=== PATIENT | female | born 1980 | race Caucasian/White ===

== ENCOUNTER 2024-05-13 19:40 | Emergency (ER) | payer SELFPAY ==
[2024-05-13] MEDS ORDERED: Acetaminophen/HYDROcodone 325-5 MG Tab PO ONE (19:41)
[2024-05-13] MEDS ORDERED: Naloxone 0.4 MG/ML SDV IVPUSH PRN (20:07)
[2024-05-13] MEDS ORDERED: Sodium Chloride 0.9% 10 ML Syringe FLUSH PRN (20:07)
[2024-05-13] MEDS: Sodium Chloride 0.9% 1,000 ML IV ONE (20:15)
[2024-05-13] MEDS: Ondansetron 4 MG/2 ML SDV IVPUSH ONE (20:20)
[2024-05-13] MEDS: HYDROmorphone 2 MG/ML SDV IVPUSH ONE (20:29)
[2024-05-13 20:33] LABS: BASOPHILS ABSOLUTE AUTO 0.1 x10-3/uL (0.0-0.1); BASOPHILS PERCENT AUTO 1.2 % (0.2-1.5); EOSINOPHILS ABSOLUTE AUTO 0.2 x10-3/uL (0.0-0.8); EOSINOPHILS PERCENT AUTO 1.5 % (0.6-8.1); HEMATOCRIT 37.8 % (34.2-48.2); LYMPHOCYTES ABSOLUTE AUTO 1.8 x10-3/uL (1.0-4.4); MEAN CORPUSCULAR HEMOGLOBIN 31.3 pg (23.9-33.9); MEAN CORPUSCULAR HGB CONC 34.5 g/dL (31.9-34.8); MEAN CORPUSCULAR VOLUME 90.9 fL (76.7-100.5); MEAN PLATELET VOLUME 7.6 fL (7.1-12.4); MONOCYTES ABSOLUTE AUTO 0.6 x10-3/uL (0.3-1.0); MONOCYTES PERCENT AUTO 5.1 % (4.4-15.7); NEUTROPHILS ABSOLUTE AUTO 8.6 x10-3/uL (1.5-6.3); NEUTROPHILS PERCENT AUTO 76.2 % (30.8-76.2); PLATELET COUNT,PLT 326 x10(3)uL (151-488); RED BLOOD CELL COUNT 4.16 x10(6)uL (3.60-5.20); WHITE BLOOD CELL COUNT,WBC 11.2 x10-3/uL (3.0-10.3)
[2024-05-13 20:35] LABS: BLOOD UREA NITROGEN,BUN 9 mg/dL (7-18); BUN/CREATININE RATIO 11.3 (9-20); CALCIUM 8.6 mg/dL (8.6-10.2); CARBON DIOXIDE,CO2 27 mmol/L (21-32); CHLORIDE,CL 103 mmol/L (100-110); CREATININE 0.8 mg/dL (0.55-1.02); EST CRCL DRUG DOSING (CG) 75.88 mL/min; ESTIMATED GFR 92 mL/min (>60); GLUCOSE RANDOM 176 mg/dL (80-116); POTASSIUM,K 3.3 mmol/L (3.5-5.3); SODIUM,NA 142 mmol/L (135-145)
[2024-05-13 20:36] LABS: BILIRUBIN,URINE NEGATIVE (NEGATIVE); GLUCOSE,URINE NORMAL (NORMAL); KETONES,URINE NEGATIVE (NEGATIVE); LEUKOCYTE ESTERASE,URINE MODERATE (NEGATIVE); NITRITE,URINE NEGATIVE (NEGATIVE); OCCULT BLOOD,URINE LARGE (NEGATIVE); PROTEIN,URINE 30 mg/dL (NEGATIVE); UROBILINOGEN,URINE 1 mg/dL (NEGATIVE)
[2024-05-13 20:41] LABS: A/G RATIO 0.7; ALANINE AMINOTRANSFERASE,ALT 27 U/L (12-36); ALBUMIN 2.8 g/dL (3.5-5.2); ALKALINE PHOSPHATASE 97 IU/L (56-112); ASPARTATE AMNIOTRANSFERASE,AST 12 IU/L (5-25); BILIRUBIN TOTAL 0.4 mg/dL (0.1-1.3); MAGNESIUM 1.6 mg/dL (1.8-2.5); PROTEIN TOTAL,TP 7.1 g/dL (6.0-8.0)
[2024-05-13 20:46] LABS: APPEARANCE,URINE SLIGHTLY CLOUDY (CLEAR); BACTERIA,URINE FEW (NS); COLOR,URINE YELLOW (YELLOW); MUCUS,URINE FEW (NS); RBC,URINE 20-30 (0-5); SQUAMOUS EPITHELIAL CELLS,UR FEW (NS,R,O)
[2024-05-14] MEDS: Ketorolac 30 MG/ML SDV IVPUSH ONE (00:15)
[2024-05-14 01:15] VITALS: BP 136/73; PULSE 74
[2024-05-14] MEDS: metroNIDAZOLE 500 MG Tab PO ONE (02:33)
[2024-05-14] MEDS: Ciprofloxacin 500 MG Tab PO ONE (02:33)
== END 2024-05-14 02:50 | disposition home or self-care (01) ==
LOC: FB.ED 19:40
DX: K57.32 Diverticulitis of large intestine without perforation or abscess without bleeding (principal); R18.8 Other ascites; F17.200 Nicotine dependence, unspecified, uncomplicated; E66.9 Obesity, unspecified; Z79.899 Other long term (current) drug therapy; Z88.0 Allergy status to penicillin; Z68.34 Body mass index [BMI] 34.0-34.9, adult
CPT/HCPCS: 36415; 74176; 80053; 81001; 83735; 85025; 86140; 87086; 96361; 96374; 96375; 99284; 99284-25; A9270-GY; J1170; J1885; J2405; J7030

== ENCOUNTER 2024-11-18 13:48 | Emergency (ER) | payer SELFPAY ==
[2024-11-18 13:57] VITALS: BP 160/65; PULSE 90
== END 2024-11-18 15:07 | disposition home or self-care (01) ==
LOC: FB.ED 13:48
DX: S63.501A Unspecified sprain of right wrist, initial encounter (principal); I10 Essential (primary) hypertension; E66.9 Obesity, unspecified; F17.210 Nicotine dependence, cigarettes, uncomplicated; Z90.49 Acquired absence of other specified parts of digestive tract; Z88.0 Allergy status to penicillin; W00.9XXA Unspecified fall due to ice and snow, initial encounter
CPT/HCPCS: 29125; 73110-RT; 99283-25

== ENCOUNTER 2025-03-06 16:33 | Emergency (ER) | payer SELFPAY ==
[2025-03-06 18:45] VITALS: BP 170/94; PULSE 88
== END 2025-03-06 18:35 | disposition home or self-care (01) ==
LOC: FB.ED 16:33
DX: M72.2 Plantar fascial fibromatosis (principal); E66.9 Obesity, unspecified; Z68.32 Body mass index [BMI] 32.0-32.9, adult; I10 Essential (primary) hypertension; F17.210 Nicotine dependence, cigarettes, uncomplicated; Z90.49 Acquired absence of other specified parts of digestive tract; Z88.0 Allergy status to penicillin
CPT/HCPCS: 73610-RT; 99283

== ENCOUNTER 2025-05-03 16:05 | Emergency (ER) | payer SELFPAY ==
[2025-05-03] MEDS ORDERED: Acetaminophen/HYDROcodone 325-5 MG Tab PO ONE (16:06)
[2025-05-03 17:04] LABS: BASOPHILS ABSOLUTE AUTO 0.1 x10-3/uL (0.0-0.1); BASOPHILS PERCENT AUTO 0.7 % (0.2-1.5); EOSINOPHILS ABSOLUTE AUTO 0.2 x10-3/uL (0.0-0.8); EOSINOPHILS PERCENT AUTO 1.6 % (0.6-8.1); HEMATOCRIT 39.8 % (34.2-48.2); HEMOGLOBIN 14.1 g/dL (11.4-15.5); LYMPHOCYTES ABSOLUTE AUTO 2.2 x10-3/uL (1.0-4.4); LYMPHOCYTES PERCENT AUTO 16.9 % (18.4-52.1); MEAN CORPUSCULAR HEMOGLOBIN 31.1 pg (23.9-33.9); MEAN CORPUSCULAR HGB CONC 35.5 g/dL (31.9-34.8); MEAN CORPUSCULAR VOLUME 87.7 fL (76.7-100.5); MEAN PLATELET VOLUME 7.6 fL (7.1-12.4); MONOCYTES ABSOLUTE AUTO 0.8 x10-3/uL (0.3-1.0); NEUTROPHILS ABSOLUTE AUTO 9.8 x10-3/uL (1.5-6.3); NEUTROPHILS PERCENT AUTO 74.8 % (30.8-76.2); PLATELET COUNT,PLT 309 x10(3)uL (151-488); RED BLOOD CELL COUNT 4.54 x10(6)uL (3.60-5.20)
[2025-05-03] MEDS ORDERED: Naloxone 0.4 MG/ML SDV IVPUSH PRN (17:04)
[2025-05-03 17:11] LABS: BLOOD UREA NITROGEN,BUN 11 mg/dL (7-18); BUN/CREATININE RATIO 15.7 (9-20); CALCIUM 8.8 mg/dL (8.6-10.2); CARBON DIOXIDE,CO2 26 mmol/L (21-32); CHLORIDE,CL 105 mmol/L (100-110); CREATININE 0.7 mg/dL (0.55-1.02); EST CRCL DRUG DOSING (CG) 82.19 mL/min; ESTIMATED GFR 107 mL/min (>60); GLUCOSE RANDOM 100 mg/dL (80-116); POTASSIUM,K 3.5 mmol/L (3.5-5.3); SODIUM,NA 140 mmol/L (135-145)
[2025-05-03 17:11] LABS: BILIRUBIN,URINE NEGATIVE (NEGATIVE); GLUCOSE,URINE NORMAL (NORMAL); KETONES,URINE NEGATIVE (NEGATIVE); LEUKOCYTE ESTERASE,URINE MODERATE (NEGATIVE); NITRITE,URINE NEGATIVE (NEGATIVE); OCCULT BLOOD,URINE MODERATE (NEGATIVE); PROTEIN,URINE NEGATIVE (NEGATIVE); UROBILINOGEN,URINE NORMAL (NEGATIVE)
[2025-05-03] MEDS: Sodium Chloride 0.9% 1,000 ML IV ONE (17:11)
[2025-05-03 17:13] LABS: APPEARANCE,URINE CLEAR (CLEAR); COLOR,URINE YELLOW (YELLOW)
[2025-05-03 17:14] LABS: C-REACTIVE PROTEIN 2.3 mg/dL (<0.50)
[2025-05-03] MEDS: Ondansetron 4 MG/2 ML SDV IVPUSH ONE (17:16)
[2025-05-03] MEDS: Morphine 4 MG/ML VIAL IVPUSH ONE ×2 (17:17→19:09)
[2025-05-03 17:18] LABS: A/G RATIO 0.9; ALANINE AMINOTRANSFERASE,ALT 22 U/L (12-36); ALBUMIN 3.4 g/dL (3.5-5.2); ALKALINE PHOSPHATASE 93 IU/L (56-112); ASPARTATE AMNIOTRANSFERASE,AST 12 IU/L (5-25); BILIRUBIN TOTAL 0.4 mg/dL (0.1-1.3); MAGNESIUM 1.8 mg/dL (1.8-2.5)
[2025-05-03] MEDS: Sodium Chloride 0.9% 10 ML Syringe FLUSH PRN (17:18)
[2025-05-03 17:32] LABS: BACTERIA,URINE FEW (NS); RBC,URINE 0-5 (0-5); SQUAMOUS EPITHELIAL CELLS,UR FEW (NS,R,O); WBC,URINE 0-5 (0-5)
[2025-05-03 18:31] VITALS: BP 160/91; PULSE 88
[2025-05-03] MEDS: Ciprofloxacin 500 MG Tab PO ONE (19:08)
[2025-05-03] MEDS: metroNIDAZOLE 500 MG Tab PO ONE (19:08)
[2025-05-03] MEDS: Ketorolac 30 MG/ML SDV IVPUSH ONE (19:10)
== END 2025-05-03 19:55 | disposition home or self-care (01) ==
LOC: FB.ED 16:05
DX: K57.32 Diverticulitis of large intestine without perforation or abscess without bleeding (principal); I10 Essential (primary) hypertension; Z88.0 Allergy status to penicillin; Z79.899 Other long term (current) drug therapy
CPT/HCPCS: 74176; 80053; 81001; 83605; 83690; 83735; 85025; 86140; 87086; 96361; 96374; 96375; 96376; 99284-25; A9270-GY; J1885; J2270; J2405; J7030

== ENCOUNTER 2025-07-22 02:23 | Emergency (ER) | payer SELFPAY ==
[2025-07-22] MEDS ORDERED: Acetaminophen/HYDROcodone 325-5 MG Tab PO ONE (02:24)
[2025-07-22 02:58] LABS: BASOPHILS ABSOLUTE AUTO 0.1 x10-3/uL (0.0-0.1); BASOPHILS PERCENT AUTO 1.2 % (0.2-1.5); EOSINOPHILS ABSOLUTE AUTO 0.4 x10-3/uL (0.0-0.8); EOSINOPHILS PERCENT AUTO 4.4 % (0.6-8.1); LYMPHOCYTES ABSOLUTE AUTO 2.5 x10-3/uL (1.0-4.4); LYMPHOCYTES PERCENT AUTO 25.1 % (18.4-52.1); MEAN PLATELET VOLUME 7.5 fL (7.1-12.4); MONOCYTES ABSOLUTE AUTO 0.6 x10-3/uL (0.3-1.0); MONOCYTES PERCENT AUTO 6.2 % (4.4-15.7); NEUTROPHILS ABSOLUTE AUTO 6.4 x10-3/uL (1.5-6.3); NEUTROPHILS PERCENT AUTO 63.1 % (30.8-76.2); PLATELET COUNT,PLT 328 x10(3)uL (151-488); RED BLOOD CELL COUNT 4.44 x10(6)uL (3.60-5.20); RED CELL DISTRIBUTION WIDTH 12.9 % (12.3-16.5); WHITE BLOOD CELL COUNT,WBC 10.1 x10-3/uL (3.0-10.3)
[2025-07-22 03:03] LABS: BLOOD UREA NITROGEN,BUN 13 mg/dL (7-18); CARBON DIOXIDE,CO2 29 mmol/L (21-32); CHLORIDE,CL 104 mmol/L (100-110); CREATININE 0.7 mg/dL (0.55-1.02); EST CRCL DRUG DOSING (CG) 85.79 mL/min; ESTIMATED GFR 107 mL/min (>60); GLUCOSE RANDOM 105 mg/dL (80-116); POTASSIUM,K 3.9 mmol/L (3.5-5.3); SODIUM,NA 142 mmol/L (135-145)
[2025-07-22] MEDS: Ketorolac 30 MG/ML SDV IVPUSH ONE (03:05)
[2025-07-22] MEDS: hydrOXYzine HCl 50 MG/ML SDV IM ONE (03:06)
[2025-07-22 03:09] LABS: A/G RATIO 0.9; ALANINE AMINOTRANSFERASE,ALT 25 U/L (12-36); ASPARTATE AMNIOTRANSFERASE,AST 15 IU/L (5-25); BILIRUBIN TOTAL 0.1 mg/dL (0.1-1.3); PROTEIN TOTAL,TP 7.3 g/dL (6.0-8.0)
[2025-07-22 03:28] LABS: LACTIC ACID 1.6 mmol/L (0.4-2.0)
[2025-07-22 03:38] VITALS: BP 131/80; PULSE 91
== END 2025-07-22 04:30 | disposition home or self-care (01) ==
LOC: FB.ED 02:23
DX: G93.89 Other specified disorders of brain (principal); R51.9 Headache, unspecified; I10 Essential (primary) hypertension; F17.210 Nicotine dependence, cigarettes, uncomplicated; Z90.49 Acquired absence of other specified parts of digestive tract; Z79.899 Other long term (current) drug therapy; Z88.0 Allergy status to penicillin
CPT/HCPCS: 36415; 70450; 80053; 83605; 83735; 85025; 86140; 96361; 96372; 96374; 99284-25; A9270-GY; J1885; J3410; J7030

== ENCOUNTER 2025-07-22 15:54 | Emergency (ER) | payer SELFPAY ==
[2025-07-22] MEDS ORDERED: Acetaminophen/oxyCODONE 325-5 MG Tab PO ONE (15:55)
[2025-07-22] MEDS: HYDROmorphone 2 MG/ML SDV IM ONE (16:57)
[2025-07-22] MEDS: hydrOXYzine HCl 50 MG/ML SDV IM ONE (16:57)
[2025-07-22 17:28] VITALS: BP 143/92; PULSE 97
== END 2025-07-22 17:23 | disposition home or self-care (01) ==
LOC: FB.ED 15:54
DX: G93.89 Other specified disorders of brain (principal); I10 Essential (primary) hypertension; E66.9 Obesity, unspecified; Z88.0 Allergy status to penicillin; Z79.899 Other long term (current) drug therapy; Z90.49 Acquired absence of other specified parts of digestive tract
CPT/HCPCS: 96372; 99283; A9270-GY; J1171; J3410

== ENCOUNTER 2025-07-26 22:31 | Emergency (ER) | payer SELFPAY ==
[2025-07-26] MEDS: diphenhydrAMINE 50 MG/ML SDV IVPUSH ONE (22:48)
[2025-07-26] MEDS: HYDROmorphone 2 MG/ML SDV IVPUSH ONE (22:49)
[2025-07-26] MEDS: Dexamethasone 4 MG/ML 5 ML MDV IVPUSH ONE (22:52)
[2025-07-26 22:55] LABS: MEAN PLATELET VOLUME 7.1 fL (7.1-12.4); PLATELET COUNT,PLT 343 x10(3)uL (151-488); RED BLOOD CELL COUNT 4.49 x10(6)uL (3.60-5.20); RED CELL DISTRIBUTION WIDTH 13.0 % (12.3-16.5); WHITE BLOOD CELL COUNT,WBC 14.7 x10-3/uL (3.0-10.3)
[2025-07-26 22:59] LABS: BLOOD UREA NITROGEN,BUN 11 mg/dL (7-18); CARBON DIOXIDE,CO2 28 mmol/L (21-32); CHLORIDE,CL 101 mmol/L (100-110); CREATININE 0.7 mg/dL (0.55-1.02); ESTIMATED GFR 107 mL/min (>60); GLUCOSE RANDOM 115 mg/dL (80-116); POTASSIUM,K 3.9 mmol/L (3.5-5.3); SODIUM,NA 138 mmol/L (135-145)
[2025-07-26 23:04] LABS: A/G RATIO 0.8; ALANINE AMINOTRANSFERASE,ALT 22 U/L (12-36); ASPARTATE AMNIOTRANSFERASE,AST 7 IU/L (5-25); BILIRUBIN TOTAL 0.4 mg/dL (0.1-1.3); PROTEIN TOTAL,TP 7.7 g/dL (6.0-8.0)
[2025-07-26 23:10] LABS: BASOPHILS PERCENT MAN 1 % (0-2); EOSINOPHILS PERCENT MAN 3 % (0-5); LYMPHOCYTES PERCENT MAN 2 % (13-37); MONOCYTES PERCENT MAN 7 % (4-12); SEG NEUTROPHILS PERCENT MAN 87 % (46-82)
[2025-07-27 00:49] VITALS: BP 179/109; PULSE 89
== END 2025-07-27 00:24 | disposition home or self-care (01) ==
LOC: FB.ED 22:31
DX: G93.89 Other specified disorders of brain (principal); I10 Essential (primary) hypertension; Z88.0 Allergy status to penicillin; Z79.899 Other long term (current) drug therapy
CPT/HCPCS: 36415; 70450; 80053; 85025; 86140; 87426; 93005; 96361; 96374; 96375; 99284; J1100; J1171; J1200; J7030; 93010

== ENCOUNTER 2025-07-29 01:48 | Emergency (ER) | payer SELFPAY ==
[2025-07-29] MEDS: Dexamethasone 4 MG/ML 5 ML MDV IVPUSH ONE (02:13)
[2025-07-29 02:14] LABS: BASOPHILS ABSOLUTE AUTO 0.1 x10-3/uL (0.0-0.1); BASOPHILS PERCENT AUTO 0.8 % (0.2-1.5); EOSINOPHILS ABSOLUTE AUTO 0.4 x10-3/uL (0.0-0.8); EOSINOPHILS PERCENT AUTO 2.8 % (0.6-8.1); LYMPHOCYTES ABSOLUTE AUTO 1.8 x10-3/uL (1.0-4.4); LYMPHOCYTES PERCENT AUTO 14.5 % (18.4-52.1); MEAN PLATELET VOLUME 7.5 fL (7.1-12.4); MONOCYTES ABSOLUTE AUTO 0.9 x10-3/uL (0.3-1.0); MONOCYTES PERCENT AUTO 7.0 % (4.4-15.7); NEUTROPHILS ABSOLUTE AUTO 9.3 x10-3/uL (1.5-6.3); NEUTROPHILS PERCENT AUTO 74.9 % (30.8-76.2); PLATELET COUNT,PLT 343 x10(3)uL (151-488); RED BLOOD CELL COUNT 3.93 x10(6)uL (3.60-5.20); RED CELL DISTRIBUTION WIDTH 13.3 % (12.3-16.5); WHITE BLOOD CELL COUNT,WBC 12.4 x10-3/uL (3.0-10.3)
[2025-07-29] MEDS: HYDROmorphone 2 MG/ML SDV IVPUSH ONE ×3 (02:15→10:40)
[2025-07-29 02:30] LABS: POTASSIUM,K 4.1 mmol/L (3.5-5.3); SODIUM,NA 136 mmol/L (135-145)
[2025-07-29 02:31] LABS: A/G RATIO 0.6; ALANINE AMINOTRANSFERASE,ALT 26 U/L (12-36); ASPARTATE AMNIOTRANSFERASE,AST 20 IU/L (5-25); BILIRUBIN TOTAL 0.5 mg/dL (0.1-1.3); BLOOD UREA NITROGEN,BUN 18 mg/dL (7-18); CARBON DIOXIDE,CO2 26 mmol/L (21-32); CHLORIDE,CL 104 mmol/L (100-110); CREATININE 0.6 mg/dL (0.55-1.02); ESTIMATED GFR 111 mL/min (>60); GLUCOSE RANDOM 123 mg/dL (80-116); PROTEIN TOTAL,TP 7.0 g/dL (6.0-8.0)
[2025-07-29 06:14] VITALS: PULSE 93
[2025-07-29] MEDS: Ketorolac 30 MG/ML SDV IVPUSH ONE (07:39)
[2025-07-29] MEDS: Gadoteridol 279.3 MG/ML 10 ML SDV IVPUSH ONE (09:35)
[2025-07-29 15:56] VITALS: BP 155/98
== END 2025-07-29 12:56 ==
LOC: FB.ED 01:48
DX: G93.89 Other specified disorders of brain (principal); I10 Essential (primary) hypertension; F17.210 Nicotine dependence, cigarettes, uncomplicated; Z88.0 Allergy status to penicillin; Z79.899 Other long term (current) drug therapy
CPT/HCPCS: 36415; 70450; 70553; 80053; 85025; 86140; 96361; 96374; 96375; 96376; 99285; A9579; J1100; J1171; J1885; J7030